=== PATIENT | female | born 2000 | race American Indian/Alaskan Native ===

== ENCOUNTER 2022-05-28 22:31 | Emergency (ER) | payer OTHER ==
[2022-05-29] MEDS: SODIUM CHLORIDE 0.9% 1000 ML 1,000 ML IV ONE ×2 (00:14→04:59)
[2022-05-29] MEDS: levETIRAcetam 1000 MG/NS 0.75% 1,000 MG/100 ML BAG IV ONE (00:14)
--- NOTE | 2022-05-29 00:49 | Emergency Department Report ---
ED Seizure HPI - General Chief Complaint: Seizure Stated Complaint: SEIZURE Time Seen by Provider: 05/28/22 23:49 Source: EMS Mode of arrival: Stretcher Limitations: Altered Mental Status - History of Present Illness Initial Comments: 21-year-old female presents from the hospital after a seizure. According history of seizures was witnessed for 2 minutes by staff. Patient received Ativan prior to arrival as per sitter at the bedside. Patient has a past medical history of seizures and depression as per anchor paperwork. Patient presents to the hospital postictal and sedated and unable to provide history of present illness. As per anchor MAR patient is currently on Depakote for mood stabilization/seizures and is scheduled to start Keppra tomorrow 500 mg twice a day for seizures. - Related Data Allergies Allergy/AdvReac Type Severity Reaction Status Date / Time acetaminophen [From Tylenol] AdvReac Unknown Verified 05/28/22 23:45 ED Review of Systems ROS: Stated complaint: SEIZURE Other details as noted in HPI Comment: All other systems reviewed and negative ED Past Medical Hx - Social History Smoking Status: Smoker, Current Status Unknown Substance Use Type: None ED Physical Exam - General Limitations: Altered Mental Status - Other Other exam information: General: No acute distress Head: Atraumatic Eyes: normal appearance ENT: Moist mucous membranes, no apparent tongue laceration Neck: Normal appearance, no midline tenderness Chest: Clear to auscultation bilaterally CV: Regular rate and rhythm Abdomen: Soft, normal bowel sounds, nontender, nondistended, no rebound or guarding Back: Normal inspection Extremity: Normal inspection, full range of motion Neuro: Initially drowsy but arousable to tactile stimulation, equal handgrip and foot dorsiflexion Psych: Appropriate behavior Skin: No rash ED Course Vital Signs 05/28/22 05/28/22 05/28/22 23:29 23:30 23:45 Temperature Pulse Rate 92 H 91 H 91 H Respiratory 20 22 22 Rate Blood Pressure 92/46 92/46 Blood Pressure [Left] O2 Sat by Pulse 100 100 100 Oximetry 05/28/22 05/28/22 05/29/22 23:46 23:53 00:01 Temperature Pulse Rate 92 H 89 88 Respiratory 22 21 21 Rate Blood Pressure 92/46 82/44 82/44 Blood Pressure [Left] O2 Sat by Pulse 100 100 99 Oximetry 05/29/22 05/29/22 05/29/22 00:15 00:31 00:45 Temperature Pulse Rate 82 97 H 94 H Respiratory 20 20 20 Rate Blood Pressure 82/44 82/44 82/44 Blood Pressure [Left] O2 Sat by Pulse 100 100 100 Oximetry 05/29/22 05/29/22 05/29/22 01:01 01:15 01:31 Temperature Pulse Rate 81 80 76 Respiratory 19 20 19 Rate Blood Pressure 82/44 82/44 82/44 Blood Pressure [Left] O2 Sat by Pulse 100 100 100 Oximetry 05/29/22 05/29/22 05/29/22 01:45 02:01 02:15 Temperature Pulse Rate 73 74 75 Respiratory 19 20 20 Rate Blood Pressure 82/44 91/49 91/49 Blood Pressure [Left] O2 Sat by Pulse 100 100 100 Oximetry 05/29/22 05/29/22 05/29/22 04:50 08:00 08:01 Temperature 97.7 F Pulse Rate 70 Respiratory 20 Rate Blood Pressure 98/59 Blood Pressure 98/59 [Left] O2 Sat by Pulse 100 Oximetry - Reevaluation(s) Reevaluation #1: 05/29/22 05:34 Patient still remains significantly sedated and received unknown amount of Ativan prior to ED arrival ED Medical Decision Making - Lab Data Result diagrams: 05/29/22 00:02 05/29/22 00:02 Lab Results 05/29/22 05/29/22 05/29/22 Range/Units 00:02 00:02 00:02 WBC 8.7 (4.5-11.0) K/mm3 RBC 4.58 (3.65-5.03) M/mm3 Hgb 12.2 (10.1-14.3) gm/dl Hct 37.3 (30.3-42.9) % MCV 81 (79-97) fl MCH 27 L (28-32) pg MCHC 33 (30-34) % RDW 15.3 H (13.2-15.2) % Plt Count 227 (140-440) K/mm3 Lymph % (Auto) 45.4 H (13.4-35.0) % Mercer % (Auto) 6.9 (0.0-7.3) % Eos % (Auto) 0.3 (0.0-4.3) % Baso % (Auto) 0.5 (0.0-1.8) % Lymph # (Auto) 4.0 (1.2-5.4) K/mm3 Mercer # (Auto) 0.6 (0.0-0.8) K/mm3 Eos # (Auto) 0.0 (0.0-0.4) K/mm3 Baso # (Auto) 0.0 (0.0-0.1) K/mm3 Seg Neutrophils % 46.9 (40.0-70.0) % Seg Neutrophils # 4.1 (1.8-7.7) K/mm3 Sodium (137-145) mmol/L Potassium (3.6-5.0) mmol/L Chloride (98-107) mmol/L Carbon Dioxide (22-30) mmol/L Anion Gap mmol/L BUN (7-17) mg/dL Creatinine (0.6-1.2) mg/dL Estimated GFR ml/min BUN/Creatinine Ratio % Glucose (65-100) mg/dL Calcium (8.4-10.2) mg/dL Magnesium 2.00 (1.7-2.3) mg/dL HCG, Qual (Negative) Valproic Acid 71.6 (50-100) ug/mL 05/29/22 05/29/22 Range/Units 00:02 00:02 WBC (4.5-11.0) K/mm3 RBC (3.65-5.03) M/mm3 Hgb (10.1-14.3) gm/dl Hct (30.3-42.9) % MCV (79-97) fl MCH (28-32) pg MCHC (30-34) % RDW (13.2-15.2) % Plt Count (140-440) K/mm3 Lymph % (Auto) (13.4-35.0) % Mercer % (Auto) (0.0-7.3) % Eos % (Auto) (0.0-4.3) % Baso % (Auto) (0.0-1.8) % Lymph # (Auto) (1.2-5.4) K/mm3 Mercer # (Auto) (0.0-0.8) K/mm3 Eos # (Auto) (0.0-0.4) K/mm3 Baso # (Auto) (0.0-0.1) K/mm3 Seg Neutrophils % (40.0-70.0) % Seg Neutrophils # (1.8-7.7) K/mm3 Sodium 142 (137-145) mmol/L Potassium 4.2 (3.6-5.0) mmol/L Chloride 105.0 (98-107) mmol/L Carbon Dioxide 26 (22-30) mmol/L Anion Gap 15 mmol/L BUN 10 (7-17) mg/dL Creatinine 0.6 (0.6-1.2) mg/dL Estimated GFR > 60 ml/min BUN/Creatinine Ratio 17 % Glucose 93 (65-100) mg/dL Calcium 9.4 (8.4-10.2) mg/dL Magnesium (1.7-2.3) mg/dL HCG, Qual Negative (Negative) Valproic Acid (50-100) ug/mL - Medical Decision Making 22-year-old female with a history of seizures presents from psychiatric facility status post seizure. Depakote level is therapeutic. Patient loaded with IV Keppra. Patient postictal during ED stay and received Ativan. Patient will need additional observation time and will be signed out to oncoming physician Dr. Jimenes at 6 AM Critical Care Time: No Critical care attestation.: If time is entered above; I have spent that time in minutes in the direct care of this critically ill patient, excluding procedure time. ED Disposition Clinical Impression: Seizure Disposition: [address] [place] [address] Is pt being admited?: No Condition: Stable Instructions: Epilepsy, [id number] Referrals: PRIMARY CARE, [Primary Care Provider] - 3-5 Days
[2022-05-29 01:27] LABS: Basophils % (Auto) 0.5 % (0.0-1.8); Eosinophils % (Auto) 0.3 % (0.0-4.3); Hematocrit 37.3 % (30.3-42.9); Hemoglobin 12.2 gm/dl (10.1-14.3); Lymphocytes % (Auto) 45.4 % (13.4-35.0); Mean Corpuscular HGB Conc 33 % (30-34); Mean Corpuscular Volume 81 fl (79-97); Monocytes # (Auto) 0.6 K/mm3 (0.0-0.8); Monocytes % (Auto) 6.9 % (0.0-7.3); Platelet Count 227 K/mm3 (140-440); Red Blood Count 4.58 M/mm3 (3.65-5.03); Red Cell Distribution Width 15.3 % (13.2-15.2)
[2022-05-29 02:45] LABS: Blood Urea Nitrogen 10 mg/dL (7-17); Calcium 9.4 mg/dL (8.4-10.2); Hemolysis Index 3
[2022-05-29 02:58] LABS: BUN/Creatinine Ratio 17
[2022-05-29 08:04] VITALS: BP 98/59
[2022-05-29] MEDS ORDERED: LORazepam 2 MG/ML VIAL ONE (13:39)
== END 2022-05-29 13:58 ==
LOC: EDSEX → ED 22:31
DX: R56.9 Unspecified convulsions (principal)
CPT/HCPCS: 36415; 80048; 80164; 83735; 84703; 85025; 96361; 96374; 99284; J1953; J2060; J7030